=== PATIENT | male | born 1975 | race Caucasian/White ===

== ENCOUNTER 2020-04-06 11:01 | Observation (INO) ==
[2020-04-06] MEDS ORDERED: *HR* HYDROcodone/Acet 5/325 mg TABLET PO ONE (12:13)
[2020-04-06 13:40] LABS: Basophils % 0.3 %; Eosinophils # 0.1 K/mcL (0.0-0.6); Eosinophils % 2.3 %; Hematocrit 46.8 % (37.5-50.1); Hemoglobin 14.5 g/dL (12.9-16.9); Immature Granulocytes % 0.2 % (0-4); Lymphocytes # 0.6 K/mcL (0.6-4.6); Lymphocytes % 10.3 %; Mean Corpuscular Hemoglobin 29.4 pg (28.0-33.3); Mean Corpuscular Volume 94.7 fL (83.0-100.0); Mean Platelet Volume 12.2 fL (9.4-12.4); Monocytes # 0.4 K/mcL (0.0-1.3); Monocytes % 6.7 %; Neutrophils # 4.8 K/mcL (1.6-8.9); Platelet Count 146 K/mcL (140-400); Red Blood Count 4.94 M/mcL (4.19-5.50); Red Cell Distribution Width 13.1 % (11.5-14.5); Segmented Neutrophils % 80.2 %
[2020-04-06 13:49] LABS: Bilirubin,Urine Negative (Negative); Blood,Urine Negative (Negative); Clarity,Urine Clear (Clear); Color,Urine Light-Yellow (Yellow); Glucose,Urine (UA) Normal (Normal); Ketones,Urine Negative (Negative); Leukocyte Esterase,Urine Negative (Negative); Nitrite,Urine Negative (Negative); PH,Urine 7.5 pH Units (5.0-8.0); Protein,Urine Negative (Neg-Trace); Specific Gravity,Urine 1.023 (1.010-1.025); Urobilinogen,Urine Normal (Normal)
[2020-04-06 13:51] LABS: Amphetamine Screen,Urine Negative ng/mL (Cutoff=1000); Barbiturate Screen,Urine Negative ng/mL (Cutoff=200); Benzodiazepines Screen,Urine Negative ng/mL (Cutoff=200); Cannabinoid Screen,Urine Negative ng/mL (Cutoff = 50); Cocaine Screen,Urine Negative ng/mL (Cutoff= 300); Opiate Screen,Urine Negative ng/mL (Cutoff=300); Phencyclidine Screen,Urine Negative ng/mL (Cutoff=25)
[2020-04-06 13:53] LABS: Prothrombin Time 11.8 Seconds (9.4-12.1)
[2020-04-06 13:56] LABS: Activated Partial Thrombo Time 30.9 Seconds (26.0-36.0)
[2020-04-06 14:18] LABS: Albumin 4.2 g/dL (3.5-5.7); Albumin/Globulin Ratio 1.4 (1.1-2.2); Bilirubin,Direct 0.1 mg/dL (0.0-0.2); Bilirubin,Indirect 0.6 mg/dL (0.0-1.0); Bilirubin,Total 0.7 mg/dL (0.3-1.0); Globulin 2.9 g/dL (2.4-3.5); Total Protein 7.1 g/dL (6.4-8.9)
[2020-04-06 14:24] LABS: BUN/Creatinine Ratio 20 (6-26); Blood Urea Nitrogen 11 mg/dL (6-20); Calcium 9.9 mg/dL (8.6-10.3); Carbon Dioxide 30 mEq/L (23-29); Chloride 106 mEq/L (98-107); Glucose 87 mg/dL (70-105); Osmolality,Calculated 297 (280-300); Potassium 3.7 mEq/L (3.5-5.1); Sodium 144 mEq/L (136-145); Troponin I < 0.03 ng/mL (< 0.04); eGFR For African Americans > 60 (> 60); eGFR For Non-African Americans > 60 (> 60)
[2020-04-06] MEDS ORDERED: Naloxone 0.4 MG/ML INJ IVP PRN (16:11)
[2020-04-06] MEDS ORDERED: Ondansetron 4 MG/2 ML VIAL IVP PRN (16:11)
[2020-04-06] MEDS ORDERED: MOM Conc 10 ML UD.LIQ PO PRN (16:11)
[2020-04-06] MEDS ORDERED: Ibuprofen 400 MG TABLET PO PRN (16:11)
[2020-04-06] MEDS: *HR* Heparin 5,000 UNIT/ML VIAL SQ SCH (16:48)
[2020-04-07] MEDS: *HR* Heparin 5,000 UNIT/ML VIAL SQ SCH ×2 (05:58→17:13)
[2020-04-07 07:02] LABS: Hematocrit 44.9 % (37.5-50.1); Hemoglobin 14.2 g/dL (12.9-16.9); Mean Corpuscular HGB Conc 31.6 g/dL (31.6-35.5); Mean Corpuscular Hemoglobin 30.4 pg (28.0-33.3); Mean Corpuscular Volume 96.1 fL (83.0-100.0); Mean Platelet Volume 12.2 fL (9.4-12.4); Platelet Count 134 K/mcL (140-400); Red Blood Count 4.67 M/mcL (4.19-5.50); Red Cell Distribution Width 13.2 % (11.5-14.5); White Blood Count 5.2 K/mcL (4.3-11.1)
[2020-04-07 07:16] LABS: BUN/Creatinine Ratio 21 (6-26); Blood Urea Nitrogen 12 mg/dL (6-20); Calcium 9.4 mg/dL (8.6-10.3); Carbon Dioxide 29 mEq/L (23-29); Chloride 106 mEq/L (98-107); Glucose 93 mg/dL (70-105); Osmolality,Calculated 291 (280-300); Potassium 3.6 mEq/L (3.5-5.1); Sodium 141 mEq/L (136-145); eGFR For African Americans > 60 (> 60); eGFR For Non-African Americans > 60 (> 60)
[2020-04-08] MEDS: *HR* Heparin 5,000 UNIT/ML VIAL SQ SCH ×2 (04:59→18:12)
[2020-04-08] MEDS: Mag Hydrox/Al Hydrox/Simeth 30 ML UDC PO PRN ×2 (10:35→15:34)
[2020-04-09 04:44] LABS: Albumin 3.6 g/dL (3.5-5.7); Albumin/Globulin Ratio 1.5 (1.1-2.2); Bilirubin,Direct 0.1 mg/dL (0.0-0.2); Bilirubin,Indirect 0.4 mg/dL (0.0-1.0); Bilirubin,Total 0.5 mg/dL (0.3-1.0); Globulin 2.4 g/dL (2.4-3.5)
[2020-04-09] MEDS: *HR* Heparin 5,000 UNIT/ML VIAL SQ SCH (05:35)
[2020-04-09 16:40] LABS: Adenovirus Not Detected (Not Detect); Bordetella Pertussis Not Detected (Not Detect); Chlamydophila pneumoniae Not Detected (Not Detect); Coronavirus 229E Not Detected (Not Detect); Coronavirus HKU1 Not Detected (Not Detect); Coronavirus NL63 Not Detected (Not Detect); Coronavirus OC43 Not Detected (Not Detect); Human Metapneumovirus Not Detected (Not Detect); Human Rhinovirus/Enterovirus Not Detected (Not Detect); Influenza A Subtype 2009 H1 Not Detected (Not Detect); Influenza B Not Detected (Not Detect); Mycoplasma pneumoniae Not Detected (Not Detect); Parainfluenza Virus 1 Not Detected (Not Detect); Parainfluenza Virus 2 Not Detected (Not Detect); Parainfluenza Virus 3 Not Detected (Not Detect); Parainfluenza Virus 4 Not Detected (Not Detect); Respiratory Syncytial Virus Not Detected (Not Detect); SARS-CoV-2 Not Detected (Not Detect)
[2020-04-09 17:16] VITALS: BP 118/78
== END 2020-04-09 18:33 ==
LOC: 3BNU 11:01 → EMEROOARM 11:01 → SUATTDRO 15:47 → 3BNU 16:33 → 2ANU 04-07 03:27
PROVIDERS: ADMIT Internal Medicine; ATTEND Internal Medicine

== ENCOUNTER 2020-05-21 13:16 | Observation (INO) ==
[2020-05-21] MEDS ORDERED: Morphine Sulfate 2 MG/ML SYRINGE IVP ONE (13:32)
[2020-05-21] MEDS ORDERED: Pantoprazole 40 MG VIAL IVP ONE (13:32)
[2020-05-21 14:39] LABS: Basophils % 0.4 %; Eosinophils # 0.1 K/mcL (0.0-0.6); Hematocrit 47.4 % (37.5-50.1); Hemoglobin 14.8 g/dL (12.9-16.9); Immature Granulocytes % 0.6 % (0-4); Lymphocytes # 0.7 K/mcL (0.6-4.6); Lymphocytes % 12.7 %; Mean Corpuscular HGB Conc 31.2 g/dL (31.6-35.5); Mean Corpuscular Hemoglobin 29.4 pg (28.0-33.3); Mean Corpuscular Volume 94.2 fL (83.0-100.0); Mean Platelet Volume 11.5 fL (9.4-12.4); Monocytes # 0.5 K/mcL (0.0-1.3); Monocytes % 8.3 %; Neutrophils # 4.1 K/mcL (1.6-8.9); Platelet Count 164 K/mcL (140-400); Red Blood Count 5.03 M/mcL (4.19-5.50); Red Cell Distribution Width 12.8 % (11.5-14.5); White Blood Count 5.4 K/mcL (4.3-11.1)
[2020-05-21 14:48] LABS: Prothrombin Time 12.1 Seconds (9.4-12.1)
[2020-05-21 14:51] LABS: Activated Partial Thrombo Time 32.4 Seconds (26.0-36.0)
[2020-05-21 14:59] LABS: Alanine Aminotransferase 89 Units/L (7-52); Albumin 4.1 g/dL (3.5-5.7); Albumin/Globulin Ratio 1.5 (1.1-2.2); Alkaline Phosphatase 187 Units/L (34-104); Aspartate Amino Transferase 47 Units/L (13-39); BUN/Creatinine Ratio 13 (6-26); Bilirubin,Total 0.5 mg/dL (0.3-1.0); Blood Urea Nitrogen 8 mg/dL (6-20); Carbon Dioxide 32 mEq/L (23-29); Chloride 106 mEq/L (98-107); Globulin 2.8 g/dL (2.4-3.5); Glucose 102 mg/dL (70-105); Osmolality,Calculated 299 (280-300); Potassium 3.5 mEq/L (3.5-5.1); Sodium 145 mEq/L (136-145); Total Protein 6.9 g/dL (6.4-8.9); Troponin I < 0.03 ng/mL (< 0.04); eGFR For African Americans > 60 (> 60); eGFR For Non-African Americans > 60 (> 60)
[2020-05-21] MEDS ORDERED: Isovue-370 500 ML BOTTLE IVP ONE (15:19)
[2020-05-21] MEDS ORDERED: Naloxone 0.4 MG/ML INJ IVP PRN (17:34)
[2020-05-21] MEDS: Pantoprazole 40 MG in 0.9 % Sodium Chloride Mini Bag 100 ML IVC SCH (19:44)
[2020-05-21 21:38] LABS: Hematocrit 46.2 % (37.5-50.1); Hemoglobin 14.5 g/dL (12.9-16.9)
[2020-05-22] MEDS: Pantoprazole 40 MG in 0.9 % Sodium Chloride Mini Bag 100 ML IVC SCH ×5 (00:45→19:43)
[2020-05-22 03:14] LABS: Hematocrit 41.5 % (37.5-50.1)
[2020-05-22 05:57] LABS: Activated Partial Thrombo Time 31.8 Seconds (26.0-36.0)
[2020-05-22 06:17] LABS: BUN/Creatinine Ratio 10 (6-26); Blood Urea Nitrogen 6 mg/dL (6-20); Calcium 10.1 mg/dL (8.6-10.3); Carbon Dioxide 31 mEq/L (23-29); Chloride 106 mEq/L (98-107); Chol/HDL Ratio 4.8 (0-4.9); Cholesterol 157 mg/dL (< 200); Glucose 95 mg/dL (70-105); HDL Cholesterol 33 mg/dL (40-59); LDL Cholesterol,Calculated 84 mg/dL (< 100); Magnesium 1.9 mg/dL (1.6-2.6); Osmolality,Calculated 295 (280-300); Potassium 3.6 mEq/L (3.5-5.1); Sodium 144 mEq/L (136-145); Triglycerides 198 mg/dL (< 150); Troponin I < 0.03 ng/mL (< 0.04); eGFR For African Americans > 60 (> 60); eGFR For Non-African Americans > 60 (> 60)
[2020-05-22 06:21] LABS: Hematocrit 45.6 % (37.5-50.1); Hemoglobin 14.4 g/dL (12.9-16.9); Mean Corpuscular HGB Conc 31.6 g/dL (31.6-35.5); Mean Corpuscular Hemoglobin 30.2 pg (28.0-33.3); Mean Corpuscular Volume 95.6 fL (83.0-100.0); Mean Platelet Volume 11.2 fL (9.4-12.4); Platelet Count 162 K/mcL (140-400); Red Blood Count 4.77 M/mcL (4.19-5.50); White Blood Count 7.6 K/mcL (4.3-11.1)
[2020-05-22 08:28] LABS: Estimated Average Glucose 103 mg/dl; Hemoglobin A1C 5.2 %
[2020-05-22] MEDS ORDERED: *HR* HYDROcodone/Acet 5/325 mg TABLET PO PRN (12:27)
[2020-05-22] MEDS ORDERED: Ringers Solution, Lactated 1,000 ML IVC ONE (12:31)
[2020-05-22] MEDS: MOM Conc 10 ML UD.LIQ PO PRN (19:48)
[2020-05-22] MEDS: Ondansetron 4 MG/2 ML VIAL IVP PRN (19:48)
[2020-05-23] MEDS: Pantoprazole 40 MG in 0.9 % Sodium Chloride Mini Bag 100 ML IVC SCH ×2 (00:23→05:16)
[2020-05-23 03:50] LABS: Hematocrit 37.8 % (37.5-50.1); Mean Corpuscular Hemoglobin 29.4 pg (28.0-33.3); Mean Platelet Volume 12.1 fL (9.4-12.4); Platelet Count 122 K/mcL (140-400); Red Blood Count 3.98 M/mcL (4.19-5.50); White Blood Count 4.5 K/mcL (4.3-11.1)
[2020-05-23 03:57] LABS: BUN/Creatinine Ratio 13 (6-26); Blood Urea Nitrogen 8 mg/dL (6-20); Calcium 8.9 mg/dL (8.6-10.3); Carbon Dioxide 28 mEq/L (23-29); Chloride 113 mEq/L (98-107); Glucose 99 mg/dL (70-105); Osmolality,Calculated 302 (280-300); Potassium 4.1 mEq/L (3.5-5.1); Sodium 147 mEq/L (136-145); eGFR For African Americans > 60 (> 60); eGFR For Non-African Americans > 60 (> 60)
[2020-05-23 04:04] LABS: Hemoglobin 11.7 g/dL (12.9-16.9)
[2020-05-23] MEDS: Ondansetron 4 MG/2 ML VIAL IVP PRN (08:43)
[2020-05-23] MEDS: Psyllium 1 PACKET POWD.PACK PO SCH ×2 (08:44→20:56)
[2020-05-23] MEDS: MOM Conc 10 ML UD.LIQ PO PRN (11:00)
[2020-05-23] MEDS ORDERED: Simethicone 80 MG TAB.CHEW PO PRN (13:04)
[2020-05-24 04:30] LABS: Red Blood Count 4.25 M/mcL (4.19-5.50); Red Cell Distribution Width 13.2 % (11.5-14.5)
[2020-05-24 04:32] LABS: Hematocrit 40.3 % (37.5-50.1); Hemoglobin 12.4 g/dL (12.9-16.9); Immature Platelets 9.5 % (1.1-6.1); Mean Corpuscular HGB Conc 30.8 g/dL (31.6-35.5); Mean Corpuscular Hemoglobin 29.2 pg (28.0-33.3); Mean Corpuscular Volume 94.8 fL (83.0-100.0); Mean Platelet Volume 11.7 fL (9.4-12.4); White Blood Count 4.5 K/mcL (4.3-11.1)
[2020-05-24 04:54] LABS: BUN/Creatinine Ratio 17 (6-26); Blood Urea Nitrogen 10 mg/dL (6-20); Calcium 9.3 mg/dL (8.6-10.3); Carbon Dioxide 31 mEq/L (23-29); Chloride 107 mEq/L (98-107); Glucose 98 mg/dL (70-105); Osmolality,Calculated 295 (280-300); Potassium 3.6 mEq/L (3.5-5.1); Sodium 143 mEq/L (136-145); eGFR For African Americans > 60 (> 60); eGFR For Non-African Americans > 60 (> 60)
[2020-05-24] MEDS: Psyllium 1 PACKET POWD.PACK PO SCH ×2 (08:02→20:22)
[2020-05-24] MEDS: [UNRECOGNIZED DRUG - OTHER] RC SCH (20:24)
[2020-05-25] MEDS: Psyllium 1 PACKET POWD.PACK PO SCH ×2 (08:16→20:13)
[2020-05-25] MEDS: [UNRECOGNIZED DRUG - OTHER] RC SCH ×2 (08:16→20:13)
[2020-05-25] MEDS: Ondansetron 4 MG/2 ML VIAL IVP PRN ×2 (11:55→20:32)
[2020-05-26] MEDS: Psyllium 1 PACKET POWD.PACK PO SCH ×2 (09:10→20:06)
[2020-05-26] MEDS: [UNRECOGNIZED DRUG - OTHER] RC SCH ×2 (09:10→20:06)
[2020-05-26] MEDS: Ondansetron 4 MG/2 ML VIAL IVP PRN (15:09)
[2020-05-27] MEDS: [UNRECOGNIZED DRUG - OTHER] RC SCH ×2 (08:07→20:30)
[2020-05-27] MEDS: Psyllium 1 PACKET POWD.PACK PO SCH ×2 (08:07→20:30)
[2020-05-27] MEDS ORDERED: Hyoscyamine SL 0.125 MG TAB.SUBL SL PRN (10:22)
[2020-05-28] MEDS: Psyllium 1 PACKET POWD.PACK PO SCH (09:26)
[2020-05-28] MEDS: [UNRECOGNIZED DRUG - OTHER] RC SCH (09:26)
[2020-05-28] MEDS: Ondansetron 4 MG/2 ML VIAL IVP PRN (09:29)
[2020-05-28] MEDS ORDERED: Hyoscyamine SL 0.125 MG TAB.SUBL SL PRN (10:29)
[2020-05-28 14:06] LABS: Adenovirus Not Detected (Not Detect); Bordetella Pertussis Not Detected (Not Detect); Chlamydophila pneumoniae Not Detected (Not Detect); Coronavirus 229E Not Detected (Not Detect); Coronavirus HKU1 Not Detected (Not Detect); Coronavirus NL63 Not Detected (Not Detect); Coronavirus OC43 Not Detected (Not Detect); Human Metapneumovirus Not Detected (Not Detect); Human Rhinovirus/Enterovirus Not Detected (Not Detect); Influenza A Subtype 2009 H1 Not Detected (Not Detect); Influenza B Not Detected (Not Detect); Mycoplasma pneumoniae Not Detected (Not Detect); Parainfluenza Virus 1 Not Detected (Not Detect); Parainfluenza Virus 2 Not Detected (Not Detect); Parainfluenza Virus 3 Not Detected (Not Detect); Parainfluenza Virus 4 Not Detected (Not Detect); Respiratory Syncytial Virus Not Detected (Not Detect); SARS-CoV-2 Not Detected (Not Detect)
[2020-05-28 15:00] VITALS: BP 104/70
== END 2020-05-28 17:25 ==
LOC: 3ANU 13:16 → EMEROOARM 13:16 → SUATTDRO 16:37 → 3ANU 18:00
PROVIDERS: ADMIT Internal Medicine; ATTEND Internal Medicine